=== PATIENT | male | born 1985 | race Caucasian/White ===

== ENCOUNTER 2021-04-28 18:47 | Emergency (ER) | payer OTHER, SELFPAY ==
[2021-04-28 18:56] VITALS: BP 146/90; PULSE 77; RESP 16; TEMP 36.6
--- NOTE | 2021-04-28 19:31 | ED.GENADULT ---
HPI - General Adult General Chief complaint: Back Pain/Injury Stated complaint: BACK PAIN Time Seen by Provider: 04/28/21 19:22 Source: patient and RN notes reviewed Mode of arrival: ambulatory Limitations: no limitations History of Present Illness HPI narrative: 35-year-old male presents with complaints of left lower back pain for the past 5 days. Patient reports increasing back pain daily unknown injury. Aspirin and Karolina back and pain without relief. 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 Denies new injuries or falls. Denies radiating pain, numbness, or tingling. Denies fever or chills. No upper or lower extremity pain or weakness. Exacerbating factors consists of certain movements. Denies nausea, vomiting, or abdominal pain. Tolerating po intake well. Denies problems with urinating or having a bowel movement, LBM today per patient and normal. No flank pain or hematuria or dysuria. The patient reports he have not been diagnosed with COVID-19. The patient reports he received 2 Pfizer COVID-19 vaccines. The patient reports he is not waiting for the results of a COVID-19 lab test. The patient reports he do not have weakness or fatigue. The patient reports he do not have a new or worsening cough or shortness of breath. Denies chest pain. The patient reports he do not have any rhinorrhea, congestion, loss of taste or smell, sore throat, and diarrhea. Denies recent traveling. Denies concerns for COVID-19 or exposures. At this time, patient is not suspected of having COVID-19. Some parts of this dictation were generated by voice recognition software and may contain typographical and/or grammatical inaccuracies. Related Data Allergies Allergy/AdvReac Type Severity Reaction Status Date / Time No Known Allergies Allergy Unverified 07/28/17 08:42 Review of Systems Review of Systems: Narrative: CONSTITUTIONAL: Denies fever, chills, sweats. EYES: Denies visual changes, redness, discharge. ENT: Denies rhinorrhea, congestion, sore throat, otalgia. CARDIOVASCULAR: Denies chest pain, palpitations, edema. RESPIRATORY: Denies dyspnea, wheezing, cough. GASTROINTESTINAL: Denies abdominal pain, nausea, vomiting, diarrhea. GENITOURINARY: Denies dysuria, hematuria, abnormal discharge. SKIN: Denies rash or itching. MUSCULOSKELETAL: Complains of left lower back pain. Denies joint pain or myalgia. NEUROLOGIC: Denies numbness or focal weakness. PSYCHIATRIC: Denies anxiety or depression. All systems reviewed & are unremarkable except as noted in HPI and below. [facility] Past Medical History Medical History (Updated 04/28/21 @ 19:38 by TRI Payne) No significant past medical history Surgical History Surgical History (Updated 04/28/21 @ 19:35 by TRI Payne) No significant past surgical history Family History Family History (Updated 04/28/21 @ 19:35 by TRI Payne) Father Asthma Mother Alive and well Social History Social History (Updated 04/28/21 @ 19:36 by TRI Payne) Smoking status: Never smoker Tobacco type: cigarettes Second hand tobacco smoke exposure: No Alcohol intake: current Substance use: never Substance use type: does not use Living arrangements: with family Occupation/Education: occupation 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 ?There is no relevant family history pertinent to the presenting complaint. Exam Narrative: Exam Narrative: GENERAL: This is a well-nourished, well-developed patient, in no apparent distress. Talks in full sentences without deficits and ambulates with steady gait without dyspnea. HEAD: Normocephalic, atraumatic. EYES: PERRL. Sclera clear/white. Vision is grossly intact. NECK: Neck supple, non-tender w
== END 2021-04-28 19:46 | disposition home or self-care (01) ==
PROVIDERS: Emergency Provider Nurse Practitioner Family
DX: M54.5 Low back pain (principal)
CPT/HCPCS: 99213; G0463

== ENCOUNTER 2021-07-03 08:38 | Emergency (ER) | payer OTHER, SELFPAY ==
--- NOTE | ~2021-07-03 | CT_ITS ---
EXAMINATION: CT abdomen pelvis wo con DATE: 07/03/2021 09:22 INDICATION: Left flank pain TECHNIQUE: Computed tomography (CT) of the abdomen and pelvis was performed without intravenous contr ast. The dose-length product was 197.37 mGy-cm. Automated exposure control and iterative reconstructi on technique were employed. COMPARISON: CT dated 07/21/2017. FINDINGS: Lung bases are unremarkable. Heart size normal. No significant pleural or pericardial effus ion. There is a 3 mm left UVJ stone with mild left hydroureteronephrosis. There is nonobstructing rig ht renal stone. Bladder is decompressed. The liver, pancreas, adrenal glands are unremarkable. There are calcified granulomas of the spleen. N onobstructive bowel gas pattern. No abnormal pelvic masses or fluid collections. Gallbladder is prese nt. No lymphadenopathy. No acute osseous abnormality. IMPRESSION: 1. Left UVJ stone measuring 3 mm with mild hydronephrosis. 2: Nonobstructing right nephrolithiasis. Reviewed, dictated and finalized at location A.
[2021-07-03 08:52] VITALS: BP 148/101; PULSE 77; RESP 18; TEMP 37.1; O2SAT 99
[2021-07-03] MEDS: SODIUM CHLORIDE 0.9% IV 1,000 ML 999 ML IV CONT (09:07)
[2021-07-03] MEDS: KETOROLAC 30 MG/ML VIAL (*BKC) IV PUSH (09:07)
[2021-07-03] MEDS: ONDANSETRON INJ 4 MG/2 ML VIAL IV PUSH (09:08)
[2021-07-03 09:40] LABS: Basophils Absolute Auto 0.1 K/mm3 (0.0-0.1); Basophils Percent Auto 0.8 % (0.2-1.2); Eosinophils Absolute Auto 0.2 K/mm3 (0-0.3); Eosinophils Percent Auto 3.3 % (0-4.4); Hematocrit 49.1 % (42.0-52.0); Hemoglobin 16.5 g/dL (14.0-18.0); Immature Granulocyte Absolute 0.02 K/mm3 (0.00-0.031); Immature Granulocyte Percent A 0.3 % (0-0.5); Lymphocytes Absolute Auto 2.19 K/mm3 (0.9-3.2); Mean Corpuscular HGB Conc 33.6 g/dl (32-36); Mean Corpuscular Hemoglobin 31.4 pg (26-34); Mean Corpuscular Volume 93.5 fl (80-100); Mean Platelet Volume 9.9 fl (7.4-10.4); Monocytes Absolute Auto 0.9 K/mm3 (0.1-0.6); Monocytes Percent Auto 13.3 % (2.6-8.5); Neutrophils Absolute Auto 3.1 K/mm3 (1.3-6.7); Neutrophils Percent Auto 48.3 % (45.5-73.1); Platelet Count Result 296 k/mm3 (150-375); Red Blood Count 5.25 M/mm3 (4.6-6.20); White Blood Count 6.5 K/mm3 (4.5-10.0)
[2021-07-03 09:44] LABS: Add Urine Microscopic? YES; Appearance Urine Clear (Clear); Bacteria Urine Trace /hpf; Bilirubin Urine Negative (Negative); Blood Urine 3+ (Negative); Color Urine Amber (Yellow); Glucose Urine UA Negative (Negative); Ketones Urine Negative (Negative); Leukocyte Esterase Ur Negative LEU/UL (Negative); Mucus Urine Moderate /lpf; Nitrate Urine Negative (Negative); Protein Urine 2+ mg/dL (Negative); RBC Urine >75 /hpf (0-2); Specific Grav Ur 1.023 (1.001-1.035); Urobilinogen Urine Negative mg/dL (<2.0)
[2021-07-03 09:57] LABS: Anion Gap 14 mmol/L (8-16); Blood Urea Nitrogen 10 mg/dL (9-20); Calcium 9.3 mg/dL (8.4-10.2); Carbon Dioxide 22 mmol/L (22-30); Chloride 101 mmol/L (98-107); Estimated CRCL calculation 74 ml/min; Estimated Glomerular Filt Rate > 60; Glucose 118 mg/dL (65-110); Sodium 137 mmol/L (137-145)
--- NOTE | 2021-07-03 10:16 | ED.ABDPAIN ---
HPI - Abdominal Pain General Chief Complaint: Abdominal Pain Stated Complaint: l flank pain Time Seen by Provider: 07/03/21 08:48 History of Present Illness HPI narrative: Patient is a 35-year-old male who presents ER with lower abdominal pain. Sudden onset. Began in the back and radiated to the mid abdomen. Associate with nausea and vomiting. No fevers or chills or sweats. No urinary frequency urgency or dysuria hematuria. Has history of kidney stones and feels similar to the past. No aggravating or alleviating factors Related Data Allergies Allergy/AdvReac Type Severity Reaction Status Date / Time No Known Allergies Allergy Verified 07/03/21 08:58 Review of Systems Review of Systems: All systems reviewed & are unremarkable except as noted in HPI and below Constitutional: Constitutional: Denies chills, Denies fever(s) and Denies weakness Gastrointestinal: Gastrointestinal: Reports abdominal pain, Denies diarrhea, Reports nausea and Reports vomiting Genitourinary: Genitourinary: Denies hematuria, Denies dysuria, Denies testicular pain and Denies urinary frequency PMFSH Past Medical History Medical History (Updated 07/03/21 @ 12:00 by Idris Brower MD) Kidney stones Surgical History Surgical History (Updated 04/28/21 @ 19:35 by TRI Payne) No significant past surgical history Family History Family History (Updated 04/28/21 @ 19:35 by TRI Payne) Father Asthma Mother Alive and well Social History Social History (Updated 04/28/21 @ 19:36 by TRI Payne) Smoking status: Never smoker Tobacco type: cigarettes Second hand tobacco smoke exposure: No Alcohol intake: current Substance use: never Substance use type: does not use 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 HEAD: Normocephalic, atraumatic. ENT: Mucous membranes moist. CHEST: Clear to auscultation. No respiratory distress. HEART: Regular rate and rhythm. Normal peripheral pulses. ABDOMEN: Soft, nontender, nondistended. EXTREMITIES: Normal range of motion. No edema. NEURO: Alert and oriented x3. PSYCH: Normal mood and affect. Course Course Emergency Course: Patient feeling improved after IV medications. Informed results. Discharge home. Vital Signs Vital signs: Vital Signs Temperature 98.7 F 07/03/21 08:52 Pulse Rate 77 07/03/21 08:52 Respiratory Rate 18 07/03/21 08:52 Blood Pressure 148/101 H 07/03/21 08:52 Pulse Oximetry 99 07/03/21 08:52 Temperature 97.7 F 07/03/21 11:16 Pulse Rate 61 07/03/21 11:16 Respiratory Rate 18 07/03/21 11:16 Blood Pressure 141/72 H 07/03/21 11:16 Pulse Oximetry 98 07/03/21 11:16 MDM - Abdominal Pain Lab Data Result diagrams: 07/03/21 09:29 07/03/21 09:29 Labs: Lab Results 07/03/21 07/03/21 07/03/21 Range/Units 09:29 09:29 09:29 WBC 6.5 (4.5-10.0) K/mm3 RBC 5.25 (4.6-6.20) M/mm3 Hgb 16.5 (14.0-18.0) g/dL Hct 49.1 (42.0-52.0) % MCV 93.5 (80-100) fl MCH 31.4 (26-34) pg MCHC 33.6 (32-36) g/dl RDW 13.0 (11.5-14.5) % Plt Count 296 (150-375) k/mm3 MPV 9.9 (7.4-10.4) fl Immature Gran % (Auto) 0.3 (0-0.5) % Neut % (Auto) 48.3 (45.5-73.1) % Lymph % (Auto) 34.0 (18.3-44.2) % [place] % (Auto) 13.3 H (2.6-8.5) % Eos % (Auto) 3.3 (0-4.4) % Baso % (Auto) 0.8 (0.2-1.2) % Lymph # (Auto) 2.19 (0.9-3.2) K/mm3 [place] # (Auto) 0.9 H (0.1-0.6) K/mm3 Eos # (Auto) 0.2 (0-0.3) K/mm3 Baso # (Auto) 0.1 (0.0-0.1) K/mm3 Abs Immat Gran (auto) 0.02 (0.00-0.031) K/mm3 Absolute Neuts (auto) 3.1 (1.3-6.7) K/mm3 Absolute Nucleated RBC 0.0 (0.0-0.012) K/mm3 Nucleated RBC % 0.0 (0.0-0.2) % Sodium 137 (137-145) mmol/L Joyce
[2021-07-03 10:39] VITALS: BP 148/82; PULSE 64; RESP 18; O2SAT 100
[2021-07-03 11:16] VITALS: BP 141/72; PULSE 61; RESP 18; TEMP 36.5; O2SAT 98
[2021-07-03 12:12] VITALS: BP 145/77; PULSE 65; RESP 16; TEMP 36.3; O2SAT 100
== END 2021-07-03 12:12 | disposition home or self-care (01) ==
PROVIDERS: Emergency Provider Emergency Medicine
DX: N13.2 Hydronephrosis with renal and ureteral calculous obstruction (principal); Z87.442 Personal history of urinary calculi
CPT/HCPCS: 36415; 74176; 80048; 81001; 85025; 96361; 96374; 96375; 99284; J1885; J2405; J7030

== ENCOUNTER 2021-07-09 09:08 | Outpatient (CLI) | payer OTHER, SELFPAY ==
--- NOTE | ~2021-07-09 | XR_ITS ---
EXAMINATION: XR abdomen/kub 1V INDICATION: Left ureteral stone TECHNIQUE: CT, 07/03/2021 COMPARISON: CT, 07/03/2021 FINDINGS: A 2 mm stone projects in the upper pole right kidney. The left ureterovesicular junction st one identified on recent CT is not definitely seen. The bowel gas pattern is normal. The visualized o sseous structures are unremarkable. IMPRESSION: 1. Previously described left ureterovesicular junction stone not definitely seen. 2. Right nephrolithiasis. Reviewed, dictated and finalized at location B. IMPRESSION: 1. Previously described left ureterovesicular junction stone not definitely see n. 2. Right nephrolithiasis.
== END 2021-07-09 09:09 | disposition home or self-care (01) ==
LOC: ANHIMG 09:09
PROVIDERS: Visit Provider Urology
DX: N20.0 Calculus of kidney (principal)
CPT/HCPCS: 74018

== ENCOUNTER 2021-07-30 13:16 | Emergency (ER) | payer OTHER, SELFPAY ==
--- NOTE | ~2021-07-30 | XR_ITS ---
EXAMINATION: XR foot LT min 3V DATE: 07/30/2021 13:34 INDICATION: Left heel pain TECHNIQUE: Dorsoplantar, lateral, and 2 oblique views of the left foot were obtained. COMPARISON: 02/25/2008 FINDINGS: A plantar calcaneal enthesophyte is noted. There is no fracture, dislocation, or subluxatio n. The joint spaces are normal. The soft tissues are unremarkable. IMPRESSION: 1. No acute osseous abnormality. Reviewed, dictated and finalized at location A.
--- NOTE | 2021-07-30 13:29 | ED.EXTPRO ---
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 Related Data Allergies Allergy/AdvReac Type Severity Reaction Status Date / Time No Known Allergies Allergy Verified 07/03/21 08:58 Review of Systems Review of Systems: CONSTITUTIONAL: Denies fever, chills, sweats. EYES: Denies visual changes, redness, discharge. ENT: Denies rhinorrhea, congestion, sore throat, otalgia. CARDIOVASCULAR: Denies chest pain, palpitations, edema. RESPIRATORY: Denies dyspnea, wheezing, cough GASTROINTESTINAL: Denies abdominal pain, nausea, vomiting, diarrhea. GENITOURINARY: Denies dysuria, hematuria, abnormal discharge SKIN: Denies rash or itching. NEUROLOGIC: Denies numbness, or focal weakness. PSYCHIATRIC: Denies anxiety or depression. 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 There is no relevant family history pertinent to the presenting complaint. Exam Narrative: GENERAL: This is a well-nourished, well-developed patient, in mild distress. HEAD: normocephalic, atraumatic. EYES: Sclera clear/white. Vision is grossly intact. EARS: External ears normal. Hearing grossly intact. NOSE: External nose normal without nasal discharge, nares without redness, no rhinorrhea. THROAT: Mucous membranes moist, NECK: Neck supple, CARDIOVASCULAR: Regular rate and rhythm without murmurs, gallops, or rubs. RESPIRATORY: Clear to auscultation. Breath sounds equal bilaterally. No wheezes, rales, or rhonchi. GASTROINTESTINAL: Abdomen soft, SKIN: warm, intact with no suspicious lesions or rash, good texture and turgor. NEURO: awake, alert, and oriented to person, place and time. There were no obvious focal neurologic abnormalities. Steady gait EXTREMITIES: Normal range of motion. 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
== END 2021-07-30 13:59 | disposition home or self-care (01) ==
PROVIDERS: Emergency Provider Nurse Practitioner
DX: M72.2 Plantar fascial fibromatosis (principal)
CPT/HCPCS: 73630; 99213; G0463

== ENCOUNTER 2022-01-13 18:59 | Emergency (ER) | payer OTHER, SELFPAY ==
[2022-01-13 19:02] VITALS: BP 144/93; PULSE 110; RESP 16; TEMP 37.1; O2SAT 99
--- NOTE | 2022-01-13 19:02 | ED.BACK ---
HPI - Back Pain/Injury General Chief Complaint: Back Pain/Injury Stated Complaint: LOW BACK PAIN Time Seen by Provider: 01/13/22 19:06 Source: patient, family, RN notes reviewed and old records reviewed Mode of arrival: ambulatory Limitations: no limitations History of Present Illness HPI Narrative: 36 year old male who presents to [facility] care with complaints of pain to the lumbar back region which at times radiates to the left buttocks area for the past 2 weeks. Patient denies any tingling or numbness down his lower extremities , denies any saddle paraesthesia, no difficulty passing urine or stools. He states that he has spasms like sensation in his lower back which makes pain sharp at times. He reports that he has been working 60 hour weeks and he thinks he has overexerted his back.He reports that he has been wearing back support with no improvement in symptoms. MD elicited complaint: back pain Pertinent past history: prior back pain and kidney stones Onset (ago): week(s) (2) Timing: progressively worsening Severity: moderate Similar Symptoms Previously: Yes (last year episode) Quality: spasming Location: lumbar spine Related Data Home Medications Medication Instructions Recorded Confirmed No Home Medications 01/13/22 01/13/22 Allergies Allergy/AdvReac Type Severity Reaction Status Date / Time No Known Allergies Allergy Verified 01/13/22 19:02 Review of Systems Review of Systems: CONSTITUTIONAL: Denies fever, chills, or sweats. EYES: Denies visual changes, redness, or discharge. ENT: Denies rhinorrhea, congestion, sore throat, or otalgia. CARDIOVASCULAR: Denies chest pain, palpitations, or edema. RESPIRATORY: Denies cough or dyspnea. GASTROINTESTINAL: Denies abdominal pain, nausea, vomiting, or diarrhea. GENITOURINARY: Denies dysuria or hematuria. SKIN: Denies rash or itching. MUSCULOSKELETAL: positive for left side lower back pain radiates to buttocks with spasms, or myalgia. NEUROLOGIC: Denies headache, numbness, or weakness. PSYCHIATRIC: Denies anxiety or depression. All systems reviewed & are unremarkable except as noted in HPI and below PMFSH Past Medical History Medical History (Updated 01/13/22 @ 19:30 by Marissa Marcelo NP) Kidney stones Lumbar back sprain Surgical History Surgical History (Updated 01/13/22 @ 19:29 by Marissa Marcelo NP) History of lithotripsy Family History Family History Father Asthma Hypertension Mother Alive and well Social History Social History (Updated 07/30/21 @ 13:33 by Genet Pantoja CNP) Smoking status: Never smoker Tobacco type: cigarettes Second hand tobacco smoke exposure: No Alcohol intake: current Alcohol use details: Excessive use at times Substance use: never Substance use type: does not use 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 There is no relevant family history pertinent to the presenting complaint Exam Narrative: GENERAL: Well-appearing, well-nourished, and in no acute distress. HEAD: Normocephalic, atraumatic. EYES: PERRLA and EOMI. ENT: Nares clear, no rhinorrhea or epistaxis. Mucous membranes moist.TM's normal with good light reflex, throat pink with no lesions or exudates, no tonsil enlargement NECK: Supple. no lymphadenopathy CHEST: Clear to auscultation. No respiratory distress.SAO2 99% on room air HEART: Regular rate and rhythm. No murmur heard. Normal peripheral pulses. ABDOMEN: Soft, nontender, nondistended, normal active bowel sounds. EXTREMITIES: Normal range of motion. No edema. Lumbar back pain to left lower back with radiation into the buttocks no radiation into lower extremities or any tingling or numbness, strong pedal pulses present bilaterally, denies any difficulty passing
== END 2022-01-13 19:25 | disposition home or self-care (01) ==
PROVIDERS: Emergency Provider Registered Nurse
DX: M62.830 Muscle spasm of back (principal); M54.32 Sciatica, left side
CPT/HCPCS: 99213; G0463

== ENCOUNTER 2023-10-16 18:24 | Emergency (ER) | payer OTHER, SELFPAY ==
[2023-10-16 18:32] VITALS: BP 115/78; PULSE 76; RESP 18; TEMP 37.1; O2SAT 98
--- NOTE | 2023-10-16 19:00 | ED.URI ---
HPI - URI/Sore Throat General Chief Complaint: Ear Stated Complaint: EARACHE Time Seen by Provider: 10/16/23 18:54 Source: patient and RN notes reviewed Mode of arrival: ambulatory Limitations: no limitations History of Present Illness HPI Narrative: Patient presents today complaining of congestion and rhinorrhea x1 week with right ear pain and pressure that started today. He has tried no [id number] medication for symptoms prior to arrival. Patient is currently on day 8 of Pen-VK for a tooth infection. Related Data Home Medications Medication Instructions Recorded Confirmed penicillin V potassium 500 mg 500 mg PO QID 10/16/23 10/16/23 tablet Allergies Allergy/AdvReac Type Severity Reaction Status Date / Time No Known Allergies Allergy Verified 10/16/23 18:39 Review of Systems Review of Systems: CONSTITUTIONAL: Denies body aches, fever, chills, or sweats. EYES: Denies visual changes, redness, or discharge. ENT: Denies sore throat+ congestion, rhinorrhea, ear pain CARDIOVASCULAR: Denies chest pain, palpitations, or edema. RESPIRATORY: Denies cough or dyspnea. GASTROINTESTINAL: Denies abdominal pain, nausea, vomiting, or diarrhea. GENITOURINARY: Denies dysuria or hematuria. SKIN: Denies rash, itching, or wounds. MUSCULOSKELETAL: Denies back pain, joint pain, or myalgia. NEUROLOGIC: Denies headache, numbness, tingling, or weakness. PSYCH: Denies depression or anxiety. 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 Please see nursing chart for further information. There is no relevant family history pertinent to the presenting complaint Exam Narrative: GENERAL: Well-appearing, well-nourished, and in no acute distress. HEAD: Normocephalic, atraumatic. EYES: EOMI. No redness or drainage. Conjunctivae normal. ENT: Mucous membranes pink and moist. Nares clear. No rhinorrhea. Left TM normal. Right TM erythematous and bulging. Throat normal. Uvula midline. NECK: Normal AROM. Supple. No lymphadenopathy. CHEST: No respiratory distress. Clear to auscultation. HEART: Regular rate and rhythm. No murmur appreciated. Normal peripheral pulses. EXTREMITIES: Normal range of motion. No edema. SKIN: Warm, dry, no rash. Capillary refill normal. Normal skin turgor. NEURO: No focal deficits. Alert and oriented x3. Gait steady. PSYCH: Normal affect. No signs of depression or anxiety. Course Course Level of Care: Express Care Visit Vital Signs Vital signs: Vital Signs Temperature 98.8 F 10/16/23 18:32 Pulse Rate 76 10/16/23 18:32 Respiratory Rate 18 10/16/23 18:32 Blood Pressure 115/78 10/16/23 18:32 Pulse Oximetry 98 10/16/23 18:32 Oxygen Delivery Room Air 10/16/23 18:32 Temperature 98.8 F 10/16/23 18:32 Pulse Rate 76 10/16/23 18:32 Respiratory Rate 18 10/16/23 18:32 Blood Pressure 115/78 10/16/23 18:32 Pulse Oximetry 98 10/16/23 18:32 Oxygen Delivery
== END 2023-10-16 19:06 | disposition home or self-care (01) ==
PROVIDERS: Emergency Provider Nurse Practitioner
DX: H66.91 Otitis media, unspecified, right ear (principal)
CPT/HCPCS: 99213; G0463

== ENCOUNTER 2023-12-15 09:46 | Emergency (ER) | payer OTHER, SELFPAY ==
--- NOTE | ~2023-12-15 | XR_ITS ---
EXAMINATION: XR abdomen/kub 1V DATE: 12/15/2023 10:31 INDICATION: Right flank pain. TECHNIQUE: A supine view of the abdomen on 2 radiographs was obtained. COMPARISON: Abdomen radiograph 07/09/2021, CT abdomen and pelvis 07/03/2021 FINDINGS: There are no dilated loops of bowel. There is a phlebolith in right pelvis. A 3 mm calcific ation overlies right sacrum. IMPRESSION: 1. New 3 mm calcification overlying right sacrum, which may be a distal right ureteral stone. Reviewed, dictated and finalized at location E. MANAGEMENT CONSULTANT IMPRESSION: 1. New 3 mm calcification overlying right sacrum, which may be a distal right u reteral stone.
--- NOTE | 2023-12-15 09:48 | WPDEDEXPGENP ---
HPI - General Ped General Chief complaint: Urogenital-Male Stated complaint: POSSIBLE KIDNEY STONE Related Data Home Medications Medication Instructions Recorded Confirmed penicillin V potassium 500 mg 500 mg PO QID 10/16/23 10/16/23 tablet Allergies Allergy/AdvReac Type Severity Reaction Status Date / Time No Known Allergies Allergy Verified 10/16/23 18:39 [facility] Past Medical History Medical History Kidney stones Lumbar back sprain Surgical History Surgical History History of lithotripsy Family History Family History Father Asthma Hypertension Mother Alive and well Social History Social History Smoking status: Never smoker Tobacco type: cigarettes Second hand tobacco smoke exposure: No Alcohol intake: current Alcohol use details: Excessive use at times Substance use: never Substance use type: does not use Living arrangements: with family Occupation/Education: occupation 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
--- NOTE | 2023-12-15 09:51 | ED.GENADULT ---
HPI - General Adult General Chief complaint: Urogenital-Male Stated complaint: POSSIBLE KIDNEY STONE Time Seen by Provider: 12/15/23 10:06 Source: patient, RN notes reviewed and old records reviewed Mode of arrival: ambulatory Limitations: no limitations History of Present Illness HPI narrative: 38-year-old male presents to the [facility] with concerns for a kidney stone. Patient reports that he has a history of kidney stones and it feels the same. Pain on the right flank that started at 2:00 p.m. yesterday. No treatment prior to arrival. Patient denies any significant pain. Patient states that he received medicine in August that worked well. Per medical record received Toradol a a to Flomax. Onset (ago): hour(s) Related Data Allergies Allergy/AdvReac Type Severity Reaction Status Date / Time No Known Allergies Allergy Verified 12/15/23 09:53 Review of Systems Review of Systems: All systems reviewed & are unremarkable except as noted in HPI and below Constitutional: Constitutional: Reports no additional constitutional complaints Eyes: Eyes: Reports no additional eye complaints ENT: Reports system reviewed and no additional complaints, except as documented Cardiovascular: Cardiovascular: Reports no additional cardiovascular complaints, Denies chest pain and Denies dyspnea Respiratory: Respiratory: Reports no additional respiratory complaints, Denies chest congestion, Denies cough and Denies dyspnea Gastrointestinal: Gastrointestinal: Reports no additional gastrointestinal complaints, Denies abdominal pain, Denies nausea and Denies vomiting Genitourinary: Genitourinary: Reports as per HPI Musculoskeletal: Musculoskeletal: Reports no additional musculoskeletal complaints Integumentary/Breasts: Skin/Breast: Reports system reviewed and no additional complaints, except as docu Neurologic: Reports system reviewed and no additional complaints, except as documented Psychiatric: Psychiatric: Reports no additional psychiatric complaints Allergic/Immunologic: Allergic/Immunologic: Reports no additional allergic/immunologic complaints [facility] Past Medical History Medical History Kidney stones Lumbar back sprain Surgical History Surgical History History of lithotripsy Family History Family History Father Asthma Hypertension Mother Alive and well Social History Social History Smoking status: Never smoker Tobacco type: cigarettes Second hand tobacco smoke exposure: No Alcohol intake: current Alcohol use details: Excessive use at times Substance use: never Substance use type: does not use Living arrangements: with family Occupation/Education: occupation 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 There is no relevant family history pertinent to the patient complaint. Exam Const: General: cooperative, healthy appearing, comfortable, no acute distress, well developed, alert and well nourished Nutritional Appearance: well nourished Orientation/consciousness: patient oriented x3 Limitations: no limitations HENMT: Head: normal to inspection Ears: hearing grossly normal bilaterally and external ears normal Face/Nose/Sinus: Normal external nose present, Normal nares present, Normal nasal mucous membranes and turbinates present, normal facial exam and face symmetric Face and sinus: normal facial exam and face symmetric Mouth: Yes moist mucous membranes Eyes: General: appearance normal, both eyes and all related structures Alignment and Position: alignment normal Periorbital: periorbital
[2023-12-15 09:57] VITALS: BP 140/87; PULSE 75; RESP 16; TEMP 36.3; O2SAT 100
== END 2023-12-15 11:07 | disposition home or self-care (01) ==
PROVIDERS: Emergency Provider Nurse Practitioner
DX: N20.0 Calculus of kidney (principal)
CPT/HCPCS: 74018; 81003; 87086; 99213; G0463

== ENCOUNTER 2025-07-02 20:23 | Emergency (ER) | payer OTHER, SELFPAY ==
--- NOTE | ~2025-07-02 | XR_ITS ---
CHEST RADIOGRAPH, PA AND LATERAL CLINICAL HISTORY: chest tightness . COMPARISON: None available TECHNIQUE: PA and lateral views of the chest. FINDINGS The cardiomediastinal silhouette is unremarkable. Bulky calcifications within the lateral left hemithorax for which prior granulomatous disease is susp ected. The remainder of the lungs are otherwise clear. IMPRESSION: No focal infiltrate or effusion. Reviewed, dictated and finalized at location A.
--- NOTE | ~2025-07-02 | CT_ITS ---
Clinical Indication: Shortness of breath, chest pain CT Scan of the Chest with Contrast: Technique: Contiguous sections were acquired throughout the chest after intravenous administration of 100 cc of Omnipaque 350. Dose reduction technique was used on this scan by utilizing automated expos ure control and iterative reconstruction technique. The dose-length product (DLP) was 362.79 mGy-cm. Findings: There is no evidence of any significant mediastinal, hilar or axillary lymphadenopathy. There is no f illing defect in the pulmonary arterial tree to suggest pulmonary embolus. There is no evidence of ao rtic dissection or aneurysm. There is no evidence of pleural or pericardial effusion. The lungs are clear, aside from several calcified left lower lobe granulomas. Images through the upper abdomen reveal no abnormalities. Impression: No evidence of pulmonary embolus, aortic dissection, or aortic aneurysm. No significant pulmonary abnormality. Reviewed, dictated and finalized at [facility]. Impression: No evidence of pulmonary embolus, aortic dissection, or aortic aneurysm. No significant pulmonary abnormality.
--- OUTSIDE RECORDS SUMMARY | 2025-07-02 20:25 | XMS_ITS | Clinical Summary ---
Author Organization [facility] Address [address] [place] [address] Phone Care Team Providers Care Mailroom Assistant Name Role Phone Darwin Christianson MD Primary Care Provider [phone] Allergies No known active allergies Medications No known medications Immunizations Immunization Administration Dates Next Due TD VACCINE 08/28/2011 Social History Tobacco Use Types Packs/Day Years Used Date Smoking Tobacco: Never Alcohol Use Standard Drinks/Week Comments No 0 (1 standard drink = 0.6 oz pur e alcohol) Sex and Gender Information Value Date Recorded Sex Assigned at Not on file 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 Gender Identity Not on file Sexual Orientation Not on file Last Filed Vital Signs Vital Sign Reading Time Taken Comments Blood Pressure 133/74 08/28/2011 10:08 PM CDT Pulse 77 08/28/2011 10:08 PM CDT Temperature 36.8 C (98.2 F) 08/28/2011 10:08 PM CDT Respiratory Rate 16 08/28/2011 10:08 PM CDT Oxygen Saturation 99% 08/28/2011 10:08 PM CDT Inhaled Oxygen Concentration - - Weight 68 kg (150 lb) 08/28/2011 10:08 PM CDT Height 167.6 cm (5' 6) 08/28/2011 10:08 PM CDT Body Mass Index 24.21 08/28/2011 10:08 PM CDT Plan of Treatment Health Maintenance Due Date Last Done Comments Hepatitis C Virus (HCV) Screening 1984 TdaP Immunization 1984 Hepatitis B Immunization (1 of 3 - 19+ 3-dose series) 2003 Human Papillomavirus (HPV) Immunization (1 - 3-dose SCDM series) 2011 SARS-COV-2 Immunization ( season) 2024 03/02/2021, 02/07/2021 Influenza Immunization (#1) 2025 Respiratory Syncytial Virus (RSV) Immunization (Adult) (1 - 1-dose 75+ series) 2059 DTaP/Tdap/Td Immunization Discontinued 08/28/2011 Meningococcal Immunization (ACWY) Aged Out No longer eligible based on patient's age to complete this topic Pneumococcal Immunization Combined Aged Out No longer eligible based on patient's age to complete this topic Rotavirus Immunization Aged Out No lo nger eligible based on patient's age to complete this topic Insurance [employer] Care Teams Mailroom Assistant Relationship Specialty Start Date End Date Darwin Christianson MD [address] [place] [address] PCP - General 08/28/11
--- NOTE | 2025-07-02 20:56 | ECG_ITS ---
Test Date: 2025-07-02 20:59:55 Measurements Intervals [place] Rate: 95 P: 71 SC: 144 QRS: 35 QRSD: 90 T: 26 QT: 356 QTc: 448 Interpretive Statements SINUS RHYTHM POSSIBLE LEFT ATRIAL ENLARGEMENT DELAYED PRECORDIAL R/S TRANSITION BORDERLINE T WAVE ABNORMALITY- INFERIOR LEADS BORDERLINE ECG No previous ECG available for comparison Electronically Signed On 07-03-2025 06:17:35 CDT by Phan Alex D.O.
[2025-07-02 21:02] VITALS: BP 141/90; PULSE 82; RESP 18; TEMP 36.8; O2SAT 100
[2025-07-02 21:15] LABS: Hematocrit 47.2 % (42.0-52.0); Hemoglobin 16.2 g/dL (14.0-18.0); Immature Granulocyte Percent A 0.3 % (0-0.5); Lymphocytes Absolute Auto 0.97 K/mm3 (0.9-3.2); Mean Corpuscular HGB Conc 34.3 g/dl (32-36); Mean Corpuscular Hemoglobin 31.6 pg (26-34); Mean Corpuscular Volume 92.0 fl (80-100); Nucleated Red Blood Cells Absolute Auto 0.000 K/mm3 (0.0-0.012); Nucleated Red Blood Cells Perc 0.0 % (0.0-0.2); Platelet Count Result 272 k/mm3 (150-375); Red Blood Count 5.13 M/mm3 (4.6-6.20); White Blood Count 7.1 K/mm3 (4.5-10.0)
[2025-07-02 21:26] LABS: INR 1.0; Prothrombin Time 13.0 Seconds (11.1-14.7)
[2025-07-02 21:27] LABS: Alanine Aminotransferase 42 U/L (6-50); Albumin Level 5.1 g/dL (3.5-5.1); Alkaline Phosphatase 88 U/L (38-126); Anion Gap 12 mmol/L (4-12); Aspartate Amino Transferase 56 U/L (17-59); Bilirubin,Total 1.9 mg/dL (0.2-1.3); Blood Urea Nitrogen 9 mg/dL (9-20); Calcium 9.9 mg/dL (8.4-10.2); Carbon Dioxide 22 mmol/L (22-30); Chloride 101 mmol/L (98-107); Estimated CRCL calculation 82 ml/min; Estimated Glomerular Filt Rate > 60; Glucose 130 mg/dL (65-110); Lipase 47 U/L (23-300); Potassium 3.3 mmol/L (3.4-5.0); Sodium 135 mmol/L (137-145); Total Protein 8.7 g/dL (6.3-8.2)
[2025-07-02 21:28] LABS: Partial Thromboplastin Time 23.8 Seconds (22.3-36.8)
[2025-07-02 21:37] LABS: Troponin I < 0.012 ng/mL (0.000-0.034)
[2025-07-02 22:35] VITALS: BP 149/94; PULSE 86; RESP 16; TEMP 37.2; O2SAT 100
[2025-07-02 22:41] VITALS: O2SAT 100
[2025-07-02] MEDS: ASPIRIN 81 MG CHEWABLE TABLET 324 MG PO (22:52)
--- OUTSIDE RECORDS SUMMARY | 2025-07-02 23:18 | XMS_ITS | Clinical Summary ---
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
--- NOTE | 2025-07-02 23:38 | ED_ITS ---
HPI - Chest Pain General Chief Complaint: Chest Pain Stated Complaint: chest tightness / vomiting Time Seen by Provider: 07/02/25 23:13 History of Present Illness HPI narrative: Patient is a 39-year-old male presents to the ER with chest pain and dizziness. He reports he has had intermittent episodes of ?heat stress over the past couple of weeks. Patient is wondering if his chest pain is related to his recent heat exposure. Today he started experiencing chest pain associated with shortness of breath. Patient also reports he had one episode of emesis prior to arrival. He reports he has been drinking lot of water. Patient reports he used to use a lot of caffeine but does not use as much anymore. He denies any recent fevers, back pain, or abdominal pain. Patient denies any illicit drug use, or recent alcohol use. He denies any other medical history besides kidney stones. Related Data Allergies Allergy/AdvReac Type Severity Reaction Status Date / Time No Known Allergies Allergy Verified 07/02/25 21:09 Review of Systems 2 Review of Systems: All systems reviewed & are unremarkable except as noted in HPI and below PMFSH Past Medical History Medical History Foot pain Lumbar back sprain Kidney stones Surgical History Surgical History History of lithotripsy Family History Family History Father Asthma Hypertension Mother Alive and well Social History Social History Smoking status: Never smoker Tobacco type: cigarettes Second hand tobacco smoke exposure: No Alcohol intake: current Alcohol use details: Excessive use at times Substance use: never Substance use type: does not use Living arrangements: with family Occupation/Education: occupation 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 HEAD: Normocephalic, atraumatic. NECK: Supple. No adenopathy, no masses. RESPIRATORY: Airway patent, respirations nonlabored. Clear to auscultation bilaterally, no rales, rhonchi, wheezing. CARDIOVASCULAR: Regular rate and rhythm without murmurs, rubs, or gallops. Peripheral pulses 2+ and equal bilaterally. ABDOMINAL: Soft, nontender, nondistended, no hepatosplenomegaly. Normoactive BS. MUSCULOSKELETAL: Moves all extremities. Strength/ROM intact without gross deformities. SKIN: Warm, dry, normal color. No rashes. NEURO: A&O X3. Speech clear. Cranial nerves II-XII intact. No ataxic movements. PSYCHIATRIC: Appropriate mood and affect. Normal interaction. Course Vital Signs Vital signs: Vital Signs Temperature 36.8 C 07/02/25 21:02 Pulse Rate 82 07/02/25 21:02 Respiratory Rate 18 07/02/25 21:02 Blood Pressure 141/90 H 07/02/25 21:02 Pulse Oximetry 100 07/02/25 21:02 Oxygen Delivery Room Air 07/02/25 21:02 Temperature 37.2 C 07/02/25 22:35 Pulse Rate 86 07/02/25 22:35 Respiratory Rate 16 07/02/25 22:35 Blood Pressure 149/94 H 07/02/25 22:35 Pulse Oximetry 100 07/02/25 22:41 Oxygen Delivery Room Air 07/02/25 22:41 MDM - Chest Pain MDM Narrative Medical decision making narrative: Patient is a 39-year-old male presents to the ER with chest pain and dizziness. He reports he has had intermittent episodes of ?heat stress over the past couple of weeks. Patient is wondering if his chest pain is related to his recent heat exposure. Today he started experiencing chest pain associated with shortness of breath. Patient also reports he had one episode of emesis prior to arrival. He reports he has been drinking lot of water. Patient reports he used to use a lot of caffeine but does not use as much anymore. He denies any recent fevers, back pain, or abdominal pain. Patient denies any illicit drug use, or recent alcohol use. He denies any other medical history besides kidney stones. Labs Ordered: CBC, CMP, UA, drug screen, D-dimer, CK, PTT, INR, lipase, TSH, troponin Imaging Ordered: Chest x-ray, CT PE protocol Medications Ordered: 1 L normal saline IV bolus, Potassium PO Results: Patient's CT indicates no acute pulmonary embolism. Diagnosis: Atypical chest pain, dehydration Risks: HEART score: low risk HEART Score for Major Cardiac Events from [employer] [email or web address] on 07/03/2025 All calculations should be rechecked by clinician prior to use RESULT SUMMARY: 2 points Low Score (0-3 points) Risk of MACE of 0.9-1.7%. INPUTS: History ?> 0 = Slightly suspicious EKG ?> 1 = Non-specific repolarization disturbance Age ?> 0 = <45 Risk factors ?> 1 = 1-2 risk factors Initial troponin ?> 0 = <Normal limit Patient Education/Shared MDM: Results of lab work and imaging shared with patient. He endorses improvement of symptoms following IV medication administration. Patient strongly advised to maintain hydration status upon discharge and follow-up with his PCP as soon as possible. He was able to consume 1 L of water by mouth prior to discharge. Patient promised to drink lots of water over the next 2 days. He will not be discharged home with any new prescriptions. Strict return precautions provided. Patient verbalized understanding and is in agreement with plan. Vital signs stable at time of discharge. All questions answered. Differential Diagnosis Differential diagnosis: Likely atypical chest pain, st elevation myocardial infarction, costochondritis and chest pain Lab Data Attestation: I reviewed the patient's lab results. 07/02/25 21:06 07/02/25 21:06 Labs: Lab Results 07/02/25 07/02/25 07/02/25 Range/Units 21:06 23:50 23:57 WBC 7.1 (4.5-10.0) K/mm3 RBC 5.13 (4.6-6.20) M/mm3 Hgb 16.2 (14.0-18.0) g/dL Hct 47.2 (42.0-52.0) % MCV 92.0 (80-100) fl MCH 31.6 (26-34) pg MCHC 34.3 (32-36) g/dl RDW 12.8 (11.5-14.5) % Plt Count 272 (150-375) k/mm3 MPV 9.5 (7.4-10.4) fl Immature Gran % (Auto) 0.3 (0-0.5) % Neut % (Auto) 74.1 H (45.5-73.1) % Lymph % (Auto) 13.6 L (18.3-44.2) % [place] % (Auto) 11.2 H (2.6-8.5) % Eos % (Auto) 0.1 (0-4.4) % Baso % (Auto) 0.7 (0.2-1.2) % Lymph # (Auto) 0.97 (0.9-3.2) K/mm3 [place] # (Auto) 0.8 H (0.1-0.6) K/mm3 Eos # (Auto) 0.0 (0-0.3) K/mm3 Baso # (Auto) 0.1 (0.0-0.1) K/mm3 Abs Immat Gran (auto) 0.02 (0.00-0.031) K/mm3 Absolute Neuts (auto) 5.3 (1.3-6.7) K/mm3 Absolute Nucleated RBC 0.000 (0.0-0.012) K/mm3 Nucleated RBC % 0.0 (0.0-0.2) % PT 13.0 (11.1-14.7) Seconds INR 1.0 APTT 23.8 (22.3-36.8) Seconds D-Dimer 0.58 H (<0.48) ug/mL Sodium 135 L (137-145) mmol/L Potassium 3.3 L (3.4-5.0) mmol/L Chloride 101 (98-107) mmol/L Carbon Dioxide 22 (22-30) mmol/L Anion Gap 12 (4-12) mmol/L BUN 9 (9-20) mg/dL Creatinine 0.95 (0.7-1.3) mg/dL Estim Creat Clear Calc 82 ml/min Estimated GFR > 60 (59 - ) Glucose 130 H (65-110) mg/dL Calcium 9.9 (8.4-10.2) mg/dL Total Bilirubin 1.9 H (0.2-1.3) mg/dL AST 56 (17-59) U/L ALT 42 (6-50) U/L Alkaline Phosphatase 88 (38-126) U/L Total Creatine Kinase 299 H (55-170) U/L Troponin I < 0.012 < 0.012 (0.000-0.034) ng/mL Total Protein 8.7 H (6.3-8.2) g/dL Albumin 5.1 (3.5-5.1) g/dL Lipase 47 (23-300) U/L TSH (Reflex) 2.360 (0.465-4.68) uIU/mL Urine Color Yellow (Yellow) Urine Appearance Cloudy H (Clear) Urine pH 8.0 (5.0-9.0) Ur Specific [place] 1.022 (1.001-1.035) Urine Protein 1+ H (Negative) mg/dL Urine Glucose (UA) Negative (Negative) mg/dL Urine Ketones 3+ H (Negative) mg/dL Ur Blood (Man) Negative (Negative) Urine Nitrate Negative (Negative) Urine Bilirubin Negative (Negative) Urine Urobilinogen 1.0 (<2.0) mg/dL Leukocyte Esterase Rfl Negative (Negative) EFRAIN/UL Urine RBC 0-2 (0-2) /hpf Urine WBC 0-5 (0-3) /hpf Ur Squamous Epith Cells None seen (Few) /hpf Urine Bacteria None seen /hpf Urine Casts 0-2 Urine Opiates Screen Negative (Negative) Urine Methadone Screen Negative (Negative) Ur Barbiturates Screen Negative (Negative) Ur Phencyclidine Scrn Negative (Negative) Ur Amphetamine Screen Negative (Negative) U Benzodiazepines Scrn Negative (Negative) Urine Cocaine Screen Negative (Negative) U Cannabinoids Screen Negative (Negative) Imaging Data Attestation: I personally reviewed and interpreted this imaging study as follows: Radiologist's impression: No acute pulmonary embolism. No focal consolidation, pleural effusion or pneumothorax ECG Data EKG #1: Attestation: I personally reviewed and interpreted this ECG as follows: ECG completion date: 07/03/25 ECG completion time: 20:59 Prior ECG tracings: available for review Ischemic changes: non-specific ST-T wave changes EKG Interpretation: normal rate, sinus rhythm and no ectopy Discharge Plan Discharge Clinical Impression: Atypical chest pain, Acute dehydration Patient Disposition: Home Condition: Stable Instructions: Antibiotic Form, Dehydration (ED), Noncardiac Chest Pain (ED) Additional Instructions: Please return to the ER with any worsening symptoms. Follow-up with primary care provider as needed. You may take Tylenol and/or ibuprofen for pain control. Please remember to drink lots and lots of water. Patient Language: Sammarinese Follow-up/Referrals: Swathi Bergeron MD [Primary Care Provider] - Stand Alone Forms: Work/School Release IP Time of Disposition: 02:36
[2025-07-03 00:01] LABS: Creatine Kinase 299 U/L (55-170)
[2025-07-03 00:16] LABS: Add Urine Microscopic? YES; Appearance Urine Cloudy (Clear); Glucose Urine UA Negative (Negative); Leukocyte Esterase Ur Negative LEU/UL (Negative); Nitrate Urine Negative (Negative); Non Pathogenic Casts 0-2; Specific Grav Ur 1.022 (1.001-1.035)
[2025-07-03 00:26] LABS: Cannabinoid Screen Urine Negative (Negative)
[2025-07-03 00:27] LABS: Thyroid Stimulating Hormone Reflex 2.360 uIU/mL (0.465-4.68)
[2025-07-03 00:33] LABS: Troponin I < 0.012 ng/mL (0.000-0.034)
[2025-07-03 02:00] VITALS: BP 118/75; PULSE 74; RESP 15; TEMP 36.6; O2SAT 99
[2025-07-03] MEDS: POTASSIUM CHLORIDE 20 MEQ ER TABLET 40 MEQ PO (02:45)
[2025-07-03] MEDS: SODIUM CHLORIDE 0.9% IV 1,000 ML 999 ML IV CONT (02:46)
[2025-07-03 03:47] LABS: Troponin I < 0.012 ng/mL (0.000-0.034)
== END 2025-07-03 03:30 | disposition home or self-care (01) ==
PROVIDERS: Student in an Organized Health Care Education/Training Program; Emergency Provider Registered Nurse; PCP Family Medicine
DX: R07.89 Other chest pain (principal); E86.0 Dehydration; Z87.442 Personal history of urinary calculi; R94.31 Abnormal electrocardiogram [ECG] [EKG]
CPT/HCPCS: 36415; 71046; 71275; 80053; 80307; 81001; 82550; 83690; 84443; 84484; 85025; 85380; 85610; 85730; 93005; 96360; 99284; A9270; J7030; Q9967

== ENCOUNTER 2025-09-04 18:39 | Emergency (ER) | payer OTHER, SELFPAY ==
--- NOTE | 2025-09-04 18:46 | ED_ITS ---
HPI - General Adult General Chief complaint: Anxiety <Nicolasa Pennington, CERTIFIED NURSING ATTENDANT - Last Filed: 09/04/25 18:50> Stated complaint: Panic attack x 3-60 min, shaking, tingling <Nicolasa Pennington CERTIFIED NURSING ATTENDANT - Last Filed: 09/04/25 18:50> Time Seen by Provider: 09/04/25 18:46 <Nicolasa Stoner March, CERTIFIED NURSING ATTENDANT - Last Filed: 09/04/25 18:50> Focused HPI: Angus Acevedo is a 39 y/o male who presents with complaints of having a severe anxiety attack. He states that he was having issues all day but got worse about an hour ago. He states he just started getting anxiety attacks off and on the past couple months but this one feels worse. Denies any other PMHx, not on any daily medications He saw his PCP yesterday about the anxiety but he wanted to try counseling before starting medications but feeling worse today. GENERAL: Well-appearing, well-nourished, HEAD: Normocephalic, atraumatic. CHEST: Clear to auscultation. ?No respiratory distress. HEART: Regular rate and rhythm.? NEURO: ?Alert and oriented x3. Patient screened in triage and initial orders placed.? ?Additional care and disposition to be based upon?diagnostic testing and treatment. <Nicolasa Pennington, CERTIFIED NURSING ATTENDANT - Last Filed: 09/04/25 18:50> History of Present Illness HPI narrative: I agree with the above HPI. <Juliana Lott CERTIFIED NURSING ATTENDANT - Last Filed: 09/04/25 23:33> Related Data Allergies/adverse reactions: Allergies Allergy/AdvReac Type Severity Reaction Status Date / Time No Known Allergies Allergy Verified 09/04/25 18:40 <Nicolasa Stoner March, CERTIFIED NURSING ATTENDANT - Last Filed: 09/04/25 18:50> Review of Systems 2 Review of Systems: All systems reviewed & are unremarkable except as noted in HPI and below <Juliana Lott APRN - Last Filed: 09/04/25 23:33> PMFSH Past Medical History Medical History: Medical History Foot pain Lumbar back sprain Kidney stones <Nicolasa Pennington, CERTIFIED NURSING ATTENDANT - Last Filed: 09/04/25 18:50> Surgical History Surgical History: Surgical History History of lithotripsy <Nicolasa SandeepShanika Pennington APRN - Last Filed: 09/04/25 18:50> Family History Family History: Family History Father Asthma Hypertension Mother Alive and well <Nicolasa Pennington APRN - Last Filed: 09/04/25 18:50> Social History Social History: Social History Smoking status: Never smoker Tobacco type: cigarettes Second hand tobacco smoke exposure: No Alcohol intake: current Alcohol use details: Excessive use at times Substance use: never Substance use type: does not use Living arrangements: with family Occupation/Education: occupation 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 HEAD: Normocephalic, atraumatic. NECK: Supple. No adenopathy, no masses. RESPIRATORY: Airway patent, respirations nonlabored. Clear to auscultation bilaterally, no rales, rhonchi, wheezing. CARDIOVASCULAR: Regular rate and rhythm without murmurs, rubs, or gallops. Peripheral pulses 2+ and equal bilaterally. ABDOMINAL: Soft, nontender, nondistended, no hepatosplenomegaly. Normoactive BS. MUSCULOSKELETAL: Moves all extremities. Strength/ROM intact without gross deformities. SKIN: Warm, dry, normal color. No rashes. NEURO: A&O X3. Speech clear. Cranial nerves II-XII intact. No ataxic movements. PSYCHIATRIC: Appropriate mood and affect. Normal interaction. <Juliana Lott APRN - Last Filed: 09/04/25 23:33> Course Vital Signs Vital signs: Vital Signs Temperature 37.1 C 09/04/25 19:31 Pulse Rate 108 H 09/04/25 19:31 Respiratory Rate 24 H 09/04/25 19:31 Blood Pressure 149/101 H 09/04/25 19:31 Pulse Oximetry 99 09/04/25 19:31 Temperature 37.1 C 09/04/25 19:44 Pulse Rate 100 09/04/25 21:31 Respiratory Rate 21 H 09/04/25 21:31 Blood Pressure 158/99 H 09/04/25 21:31 Pulse Oximetry 98 09/04/25 21:31 Oxygen Delivery Room Air 09/04/25 19:44 <Nicolasa Pennington, CERTIFIED NURSING ATTENDANT - Last Filed: 09/04/25 18:50> Vital Signs Temperature 37.1 C 09/04/25 19:31 Pulse Rate 108 H 09/04/25 19:31 Respiratory Rate 24 H 09/04/25 19:31 Blood Pressure 149/101 H 09/04/25 19:31 Pulse Oximetry 99 09/04/25 19:31 Temperature 37.1 C 09/04/25 19:44 Pulse Rate 100 09/04/25 21:31 Respiratory Rate 21 H 09/04/25 21:31 Blood Pressure 158/99 H 09/04/25 21:31 Pulse Oximetry 98 09/04/25 21:31 Oxygen Delivery Room Air 09/04/25 19:44 <Juliana Lott, CERTIFIED NURSING ATTENDANT - Last Filed: 09/04/25 23:33> Medical Decision Making MDM Narrative Medical decision making narrative: Angus Acevedo is a 39 y/o male who presents with complaints of having a severe anxiety attack. He states that he was having issues all day but got worse about an hour ago. He states he just started getting anxiety attacks off and on the past couple months but this one feels worse. The patient endorses a history of alcoholism. He saw his PCP yesterday about the anxiety but he wanted to try counseling before starting medications but feeling worse today. Labs Ordered: CBC, CMP Imaging Ordered: None necessary Medications Ordered: Ativan 1 mg p.o. Results: Patient's CBC was unremarkable for acute abnormalities. His CMP indicates a carbon dioxide 19, anion gap 18, total bilirubin of 2.4, AST is 72, ALT of 77, total protein of 8.4. Diagnosis: Anxiety attack, history of alcoholism Consults: Patient reports he was recently given a list of mental health resources by his PCP. He was strongly advised to call these numbers for follow- up on his anxiety. Patient Education/Shared MDM: Results of lab work shared with patient. He endorses significant improvement symptoms before receiving any intervention. Patient strongly advised to maintain hydration status upon discharge and follow- up with the mental health resources given to him by his PCP. He was also advised to refrain from alcohol and other illicit drugs. He will be discharged home with a prescription for hydroxyzine. Strict return precautions provided. Patient verbalized understanding and is in agreement with plan. Vital signs stable at time of discharge. All questions answered. <Juliana Lott, CERTIFIED NURSING ATTENDANT - Last Filed: 09/04/25 23:33> Differential Diagnosis Differential Diagnosis: Anxiety attack, dehydration, depression, alcohol intoxication <Juliana Lott, CERTIFIED NURSING ATTENDANT - Last Filed: 09/04/25 23:33> Vital Signs Vital Signs: Vital Signs Temperature 37.1 C 09/04/25 19:31 Pulse Rate 108 H 09/04/25 19:31 Respiratory Rate 24 H 09/04/25 19:31 Blood Pressure 149/101 H 09/04/25 19:31 Pulse Oximetry 99 09/04/25 19:31 Temperature 37.1 C 09/04/25 19:44 Pulse Rate 100 09/04/25 21:31 Respiratory Rate 21 H 09/04/25 21:31 Blood Pressure 158/99 H 09/04/25 21:31 Pulse Oximetry 98 09/04/25 21:31 Oxygen Delivery Room Air 09/04/25 19:44 <Nicolasa Pennington, CERTIFIED NURSING ATTENDANT - Last Filed: 09/04/25 18:50> Vital Signs Temperature 37.1 C 09/04/25 19:31 Pulse Rate 108 H 09/04/25 19:31 Respiratory Rate 24 H 09/04/25 19:31 Blood Pressure 149/101 H 09/04/25 19:31 Pulse Oximetry 99 09/04/25 19:31 Temperature 37.1 C 09/04/25 19:44 Pulse Rate 100 09/04/25 21:31 Respiratory Rate 21 H 09/04/25 21:31 Blood Pressure 158/99 H 09/04/25 21:31 Pulse Oximetry 98 09/04/25 21:31 Oxygen Delivery Room Air 09/04/25 19:44 <Juliana Lott, CERTIFIED NURSING ATTENDANT - Last Filed: 09/04/25 23:33> Lab Data Lab results reviewed: Yes I reviewed the patient's lab results. <Juliana Lott, CERTIFIED NURSING ATTENDANT - Last Filed: 09/04/25 23:33> Result diagrams: 09/04/25 19:57 09/04/25 19:57 <Nicolasa Pennington, CERTIFIED NURSING ATTENDANT - Last Filed: 09/04/25 18:50> Labs: Lab Results 09/04/25 Range/Units 19:57 WBC 6.5 (4.5-10.0) K/mm3 RBC 5.36 (4.6-6.20) M/mm3 Hgb 17.1 (14.0-18.0) g/dL Hct 49.9 (42.0-52.0) % MCV 93.1 (80-100) fl MCH 31.9 (26-34) pg MCHC 34.3 (32-36) g/dl RDW 12.6 (11.5-14.5) % Plt Count 224 (150-375) k/mm3 MPV 9.2 (7.4-10.4) fl Immature Gran % (Auto) 0.3 (0-0.5) % Neut % (Auto) 75.1 H (45.5-73.1) % Lymph % (Auto) 13.0 L (18.3-44.2) % Treasure % (Auto) 10.5 H (2.6-8.5) % Eos % (Auto) 0.2 (0-4.4) % Baso % (Auto) 0.9 (0.2-1.2) % Lymph # (Auto) 0.84 L (0.9-3.2) K/mm3 Treasure # (Auto) 0.7 H (0.1-0.6) K/mm3 Eos # (Auto) 0.0 (0-0.3) K/mm3 Baso # (Auto) 0.1 (0.0-0.1) K/mm3 Abs Immat Gran (auto) 0.02 (0.00-0.031) K/mm3 Absolute Neuts (auto) 4.9 (1.3-6.7) K/mm3 Absolute Nucleated RBC 0.000 (0.0-0.012) K/mm3 Nucleated RBC % 0.0 (0.0-0.2) % Sodium 138 (137-145) mmol/L Potassium 3.7 (3.4-5.0) mmol/L Chloride 101 (98-107) mmol/L Carbon Dioxide 19 L (22-30) mmol/L Anion Gap 18 H (4-12) mmol/L BUN 10 (9-20) mg/dL Creatinine 0.84 (0.7-1.3) mg/dL Estim Creat Clear Calc Not Reportable Estimated GFR > 60 (59 - ) Glucose 108 (65-110) mg/dL Calcium 9.8 (8.4-10.2) mg/dL Total Bilirubin 2.4 H (0.2-1.3) mg/dL AST 72 H (17-59) U/L ALT 77 H (6-50) U/L Alkaline Phosphatase 90 (38-126) U/L Total Protein 8.4 H (6.3-8.2) g/dL Albumin 4.9 (3.5-5.1) g/dL <Nicolasa Pennington, CERTIFIED NURSING ATTENDANT - Last Filed: 09/04/25 18:50> Lab Results 09/04/25 Range/Units 19:57 WBC 6.5 (4.5-10.0) K/mm3 RBC 5.36 (4.6-6.20) M/mm3 Hgb 17.1 (14.0-18.0) g/dL Hct 49.9 (42.0-52.0) % MCV 93.1 (80-100) fl MCH 31.9 (26-34) pg MCHC 34.3 (32-36) g/dl RDW 12.6 (11.5-14.5) % Plt Count 224 (150-375) k/mm3 MPV 9.2 (7.4-10.4) fl Immature Gran % (Auto) 0.3 (0-0.5) % Neut % (Auto) 75.1 H (45.5-73.1) % Lymph % (Auto) 13.0 L (18.3-44.2) % Treasure % (Auto) 10.5 H (2.6-8.5) % Eos % (Auto) 0.2 (0-4.4) % Baso % (Auto) 0.9 (0.2-1.2) % Lymph # (Auto) 0.84 L (0.9-3.2) K/mm3 Treasure # (Auto) 0.7 H (0.1-0.6) K/mm3 Eos # (Auto) 0.0 (0-0.3) K/mm3 Baso # (Auto) 0.1 (0.0-0.1) K/mm3 Abs Immat Gran (auto) 0.02 (0.00-0.031) K/mm3 Absolute Neuts (auto) 4.9 (1.3-6.7) K/mm3 Absolute Nucleated RBC 0.000 (0.0-0.012) K/mm3 Nucleated RBC % 0.0 (0.0-0.2) % Sodium 138 (137-145) mmol/L Potassium 3.7 (3.4-5.0) mmol/L Chloride 101 (98-107) mmol/L Carbon Dioxide 19 L (22-30) mmol/L Anion Gap 18 H (4-12) mmol/L BUN 10 (9-20) mg/dL Creatinine 0.84 (0.7-1.3) mg/dL Estim Creat Clear Calc Not Reportable Estimated GFR > 60 (59 - ) Glucose 108 (65-110) mg/dL Calcium 9.8 (8.4-10.2) mg/dL Total Bilirubin 2.4 H (0.2-1.3) mg/dL AST 72 H (17-59) U/L ALT 77 H (6-50) U/L Alkaline Phosphatase 90 (38-126) U/L Total Protein 8.4 H (6.3-8.2) g/dL Albumin 4.9 (3.5-5.1) g/dL <Juliana Lott APRN - Last Filed: 09/04/25 23:33> Discharge Plan Discharge Clinical Impression: Acute anxiety, Alcohol use disorder <Nicolasa Pennington APRN - Last Filed: 09/04/25 18:50> Patient Disposition: Home <Nicolasa Pennington APRN - Last Filed: 09/04/25 18:50> Condition: Stable <Nicolasa Pennington APRN - Last Filed: 09/04/25 18:50> Instructions: Antibiotic Form, Anxiety (ED) <Nicolasa Pennington APRN - Last Filed: 09/04/25 18:50> Additional Instructions: Please return to the ER with any worsening symptoms. Follow-up with the mental health resource provided to you by your primary care provider as soon as possible. Please take hydroxyzine as needed for anxiety. Remember to drink lots of water to stay hydrated. <Nicolasa Pennington CERTIFIED NURSING ATTENDANT - Last Filed: 09/04/25 18:50> Patient Language: Kenyan <Nicolasa Pennington, CERTIFIED NURSING ATTENDANT - Last Filed: 09/04/25 18:50> Prescriptions: New hydroxyzine HCl 25 mg tablet 25 mg PO TID PRN (Reason: anxiety) Qty: 20 0RF <Nicolasa Pennington, CERTIFIED NURSING ATTENDANT - Last Filed: 09/04/25 18:50> Follow-up/Referrals: Bryson Fleming MD [Primary Care Provider, Family Practice] <Nicolasa Pennington CERTIFIED NURSING ATTENDANT - Last Filed: 09/04/25 18:50> Time of Disposition: 23:33 <Nicolasa Pennington CERTIFIED NURSING ATTENDANT - Last Filed: 09/04/25 18:50> 23:33 <Juliana Lott CERTIFIED NURSING ATTENDANT - Last Filed: 09/04/25 23:33>
[2025-09-04 19:31] VITALS: BP 149/101; PULSE 108; RESP 24; TEMP 37.1; O2SAT 99
[2025-09-04 19:44] VITALS: BP 149/101; PULSE 108; RESP 24; TEMP 37.1; O2SAT 99
--- NOTE | 2025-09-04 19:49 | ECG_ITS ---
Test Date: 2025-09-04 19:50:57 Measurements Intervals Virgil Rate: 102 P: 75 MI: 140 QRS: 43 QRSD: 92 T: 40 QT: 326 QTc: 425 Interpretive Statements SINUS TACHYCARDIA POSSIBLE LEFT ATRIAL ENLARGEMENT BORDERLINE T WAVE ABNORMALITY- INFERIOR LEADS BASELINE ARTIFACT- I, II, III, AVR, AVL, AVF BORDERLINE ECG Compared to ECG 07/02/2025 20:59:55 HEART RATE HAS INCREASED Electronically Signed On 09-05-2025 06:18:25 CDT by Phan Alex D.O.
[2025-09-04 20:03] LABS: Hematocrit 49.9 % (42.0-52.0); Hemoglobin 17.1 g/dL (14.0-18.0); Immature Granulocyte Percent A 0.3 % (0-0.5); Lymphocytes Absolute Auto 0.84 K/mm3 (0.9-3.2); Mean Corpuscular HGB Conc 34.3 g/dl (32-36); Mean Corpuscular Hemoglobin 31.9 pg (26-34); Mean Corpuscular Volume 93.1 fl (80-100); Nucleated Red Blood Cells Absolute Auto 0.000 K/mm3 (0.0-0.012); Nucleated Red Blood Cells Perc 0.0 % (0.0-0.2); Platelet Count Result 224 k/mm3 (150-375); Red Blood Count 5.36 M/mm3 (4.6-6.20); White Blood Count 6.5 K/mm3 (4.5-10.0)
[2025-09-04 20:21] LABS: Alanine Aminotransferase 77 U/L (6-50); Albumin Level 4.9 g/dL (3.5-5.1); Alkaline Phosphatase 90 U/L (38-126); Anion Gap 18 mmol/L (4-12); Aspartate Amino Transferase 72 U/L (17-59); Bilirubin,Total 2.4 mg/dL (0.2-1.3); Blood Urea Nitrogen 10 mg/dL (9-20); Calcium 9.8 mg/dL (8.4-10.2); Carbon Dioxide 19 mmol/L (22-30); Chloride 101 mmol/L (98-107); Estimated Glomerular Filt Rate > 60; Glucose 108 mg/dL (65-110); Potassium 3.7 mmol/L (3.4-5.0); Sodium 138 mmol/L (137-145); Total Protein 8.4 g/dL (6.3-8.2)
[2025-09-04 21:31] VITALS: BP 158/99; PULSE 100; RESP 21; O2SAT 98
--- OUTSIDE RECORDS SUMMARY | 2025-09-04 21:48 | XMS_ITS | Clinical Summary ---
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
[2025-09-04] MEDS: LORazepam (*CRX) 1 MG TABLET PO (23:35)
[2025-09-04 23:38] VITALS: BP 163/84; PULSE 102; RESP 13; O2SAT 100
[2025-09-04 23:44] VITALS: BP 163/84; PULSE 102; RESP 13; O2SAT 100
== END 2025-09-04 23:46 | disposition home or self-care (01) ==
PROVIDERS: Nurse Practitioner Family; Emergency Provider Registered Nurse; PCP Family Medicine Adolescent Medicine
DX: F41.9 Anxiety disorder, unspecified (principal); F10.20 Alcohol dependence, uncomplicated; Z87.442 Personal history of urinary calculi; R94.31 Abnormal electrocardiogram [ECG] [EKG]; R00.0 Tachycardia, unspecified
CPT/HCPCS: 36415; 80053; 85025; 93005; 99283; A9270

== ENCOUNTER 2025-10-22 13:29 | Outpatient (CLI) | payer OTHER, SELFPAY ==
--- OUTSIDE RECORDS SUMMARY | 2025-10-22 13:33 | XMS_ITS | Clinical Summary ---
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
--- NOTE | 2025-10-22 13:39 | ECHO_ITS ---
Patient Info Name: Angus Acevedo Age: 39 years : 1985 Gender: Male Ht: 66 in Wt: 155 lbs BSA: 1.82 m2 HR: 67 bpm BP: 146 / 87 mmHg Heart Rhythm: Sinus Rhythm Technical Quality: Good Exam Date: 10/22/2025 1:51 PM Patient Status: O Admit Date: 10/22/2025 Exam Type: CA echo doppler color flow Complete two-dimensional, color flow and Doppler transthoracic echocardiogram is performed. Garment Fitter: Cassie Valdivia Attending Provider: Christie Hsu Summary 1. Complete two-dimensional, color flow and Doppler transthoracic echocardiogram is performed. 2. Left ventricular chamber dimension is normal. 3. Left ventricular systolic function is normal, estimated at 65-70. 4. The left ventricular diastolic function is grade I diastolic dysfunction. 5. E/e' 6 is not elevated. Left Ventricle E/e' 6 is not elevated. Left ventricular chamber dimension is normal. Left ventricular systolic function is normal, estimated at 65-70. The left ventricular diastolic function is grade I diastolic dysfunction. Right Ventricle Right ventricular chamber dimension is normal. Right ventricular systolic function is normal and with normal TAPSE 2.6 cm. Left Atria Left atrial chamber dimension is normal. Right Atria Right atrial chamber dimension is normal. Aortic Valve The aortic valve is trileaflet. There is no aortic valve stenosis. There is no aortic valve regurgitation. Pulmonic Valve There is no pulmonic regurgitation. Mitral Valve There is no mitral valve stenosis. There is no mitral valve regurgitation. Tricuspid Valve There is no tricuspid valve regurgitation. Pericardium/Pleural There is no pericardial effusion. Inferior Vena Cava Normal inferior vena cava with >50% collapse upon inspiration consistent with normal right atrial pressure, 5 mmHg. Aorta The aortic root size at the sinus of Valsalva is normal. Left Ventricular Outflow Tract Name Value Normal LVOT 2D LVOT Diameter 2.0 cm LVOT Doppler LVOT Peak Velocity 98 cm/s LVOT Peak Gradient 4 mmHg LVOT Mean Gradient 2 mmHg LVOT VTI 16 cm LVOT VTI/AV VTI Ratio 0.7 LVOT Stroke Volume 49 ml LVOT CO 3.7 l/min LVOT CI 2.0 l/min/m2 Pulmonic Valve Name Value Normal RVOT Doppler RVOT Peak Velocity 81 cm/s RVOT Peak Gradient 3 mmHg PV Doppler PV Peak Velocity 111 cm/s PV Peak Gradient 5 mmHg Mitral Valve Name Value Normal MV Diastolic Function MV E Peak Velocity 52 cm/s MV A Peak Velocity 65 cm/s MV E/A 0.8 MV Decel Time (PW) 234 ms MV Annular TDI MV E/e' (Septal) 7.6 MV E/e' (Lateral) 5.0 MV E/e' (Average) 6.3 Tricuspid Valve Name Value Normal TV Regurgitation Doppler TR Peak Velocity 17 cm/s TR Peak Gradient 0 mmHg Estimated PAP/RSVP RA Pressure 5 mmHg <=5 PA Systolic Pressure 5 mmHg <36 RV Systolic Pressure 5 mmHg <36 Aorta Name Value Normal Ascending Aorta Ao Root Diameter (MM) 3.3 cm Ao Root Diam Index (MM) 1.8 cm/m2 Aortic Valve Name Value Normal AV Doppler AV Peak Velocity 127 cm/s AV Peak Gradient 6 mmHg AV Mean Gradient 4 mmHg AV VTI 24 cm AV Area (Cont Eq VTI) 2.0 cm2 >=3.0 AV Area (Cont Eq José Miguel) 2.3 cm2 AV DI (José Miguel) 0.77 AV Regurgitation 2D LVOT Area 3.0 cm2 Ventricles Name Value Normal LV Dimensions 2D/MM IVS Diastolic Thickness (2D) 0.9 cm 0.6-1.0 LVID Diastole (2D) 5.3 cm 4.2-5.8 LVIW Diastolic Thickness (2D) 0.8 cm 0.6-1.0 LVID Systole (2D) 3.2 cm 2.5-4.0 LVOT Diameter 2.0 cm LV Mass (2D Cubed) 161.27 g 88.00-224.00 LV Mass Index (2D Cubed) 89 g/m2 49-115 Relative Wall Thickness (2D) 0.29 <=0.42 LV Fractional Shortening/Ejection Fraction 2D/MM LV Fractional Shortening (2D) 39 % 25-43 LV EF (2D Teichholz) 70 % LV Diastolic Volume (4C MOD) 77 ml LV EF (4C MOD) 67 % LV Diastolic Volume (2C MOD) 90 ml LV EF (2C MOD) 72 % LV Diastolic Volume (BP MOD) 85 ml 62-150 LV Diastolic Volume Index (BP MOD) 47 ml/m2 34-74 LV Systolic Volume (BP MOD) 25 ml 21-61 LV Systolic Volume Index (BP MOD) 14 ml/m2 11-31 LV EF (BP MOD) 70 % 52-72 LV Diastolic Length (4C) 7.8 cm LV Systolic Length (4C) 6.8 cm LV Stroke Volume (4C MOD) 51 ml Atria Name Value Normal LA Dimensions LA Dimension (MM) 3.8 cm 3.0-4.0 LA Volume (4C A-L) 55 ml LA Volume (BP A-L) 58 ml RA Dimensions RA Area (4C) 14.0 cm2 <=18.0 Report Signatures
== END 2025-10-22 13:30 | disposition home or self-care (01) ==
LOC: ANHCARD 13:30
PROVIDERS: Visit Provider Student in an Organized Health Care Education/Training Program
DX: R07.9 Chest pain, unspecified (principal)
CPT/HCPCS: 93306